=== PATIENT | male | born 1955 | race Caucasian/White ===

== ENCOUNTER 2017-07-07 15:40 | Emergency (ER) | payer MEDICAID ==
[~2017-07-07] VITALS: Ht 167.6 cm; Wt 80.3 kg
[2017-07-07 16:26] VITALS: BP 164/96
== END 2017-07-07 16:28 | disposition home or self-care (01) ==
LOC: ER 15:47
DX: M10.9 Gout, unspecified (principal)
CPT/HCPCS: 99283; A4606; Z7610